=== PATIENT | female | born 1975 | race Caucasian/White ===

== ENCOUNTER 2022-02-07 13:21 | Outpatient (CLI) | payer OTHER | END 2022-02-07 13:22 | disposition home or self-care (01) | LOC: CSHCP 13:21 | PROVIDERS: ATTEND Internal Medicine | DX: J84.10 Pulmonary fibrosis, unspecified (principal); J98.4 Other disorders of lung; F17.210 Nicotine dependence, cigarettes, uncomplicated; R05.9 Cough, unspecified; R06.00 Dyspnea, unspecified | CPT/HCPCS: 94010; 94726; 94729; 94760 ==